=== PATIENT | female | born 1960 | race Caucasian/White ===

== ENCOUNTER → 2017-04-19 | Outpatient (CLI) | payer BC ==
[2016-08-29 14:42] VITALS: BP 154/94
--- NOTE | 2017-04-20 11:49 | RAD ---
HISTORY: Right elbow pain. Study: 3 view series right elbow joint. Comparison: None Findings: No acute fracture, subluxation, or dislocation is identified. No lytic or bone forming lesions are se en. No osteochondral defects are observed. There is mild right elbow joint osteoarthritis appreciated on this examination. Mild osteopenia is seen. No elbow intra-articular loose bodies are seen. No verna nt effusion is seen. The radial head is unremarkable in its appearance. IMPRESSION: Negative elbow joint exam for acute fracture/dislocation. Mild elbow joint osteoarthritis and mild osteopenia seen. Reported By:
== END | disposition home or self-care (01) ==
LOC: RAD 13:22
PROVIDERS: ATTEND Nurse Practitioner Family
DX: M25.521 Pain in right elbow (principal); M85.88 Other specified disorders of bone density and structure, other site; M19.021 Primary osteoarthritis, right elbow
CPT/HCPCS: 73070

== ENCOUNTER → 2017-06-13 | Outpatient (CLI) | payer BC ==
[2016-08-29 14:42] VITALS: BP 154/94
--- NOTE | 2017-06-16 11:10 | MG ---
HISTORY: SCREENING Comparison: 11/26/2013, 01/03/2011 FINDINGS: CC and MLO projections of the right and left breast were obtained. Scattered fibroglandular tissue i s present. No significant architectural distortion, mass or clustered microcalcifications can be obs erved to suggest malignancy. No skin thickening or nipple retraction is appreciated. No pathologic al lymphadenopathy can be identified. IMPRESSION: NO RADIOGRAPHIC EVIDENCE OF MALIGNANCY. ACR CATEGORY I - NEGATIVE EXAM. FOLLOW-UP EXAM 1 YEAR. Diagnostic CAD was utilized and reviewed. * 0 (ZERO) - ASSESSMENT INCOMPLETE; ADDITIONAL IMAGING IS NEEDED. * 1/1 (ONE) - NEGATIVE. * 2/II (TWO) - BENIGN FINDINGS. * 3/III (THREE) - PROBABLY BENIGN FINDING; SHORT INTERVAL FOLLOW-UP SUGGESTED. * 4/IV (FOUR) - SUSPICIOUS ABNORMALITY; BIOPSY SHOULD BE CONSIDERED. * 5/V - HIGHLY SUSPICIOUS OF MALIGNANCY; BIOPSY SHOULD BE PERFORMED. A NEGATIVE X-RAY REPORT SHOULD NOT DELAY BIOPSY IF A DOMINANT OR CLINICALLY SUSPICIOUS MASS IS PRESENT; 4 TO 8 PERCENT OF CANCERS ARE NOT IDENTIFIED BY X-RAY. A NEGA TIVE REPORT MAY REINFORCE THE CLINICAL IMPRESSION. ADENOSIS AND DENSE BREASTS MAY OBSCURE AN UNDERLY ING NEOPLASM. Reported By:
== END ==
LOC: RAD 10:18
PROVIDERS: ATTEND Nurse Practitioner Family
DX: Z12.31 Encounter for screening mammogram for malignant neoplasm of breast (principal)
CPT/HCPCS: 77067